=== PATIENT | female | born 1945 | race Caucasian/White ===

== ENCOUNTER 2019-09-05 13:00 | Emergency (ER) | payer BC, MEDICARE | END 2019-09-05 15:19 | disposition home or self-care (01) | LOC: ED 13:00 | DX: S52.222A Displaced transverse fracture of shaft of left ulna, initial encounter for closed fracture (principal); M19.90 Unspecified osteoarthritis, unspecified site; G43.909 Migraine, unspecified, not intractable, without status migrainosus; Z88.2 Allergy status to sulfonamides; W55.12XA Struck by horse, initial encounter; Y93.89 Activity, other specified; Y92.89 Other specified places as the place of occurrence of the external cause; Y99.8 Other external cause status ==